=== PATIENT | female | born 1985 ===

== ENCOUNTER 2017-09-08 09:58 | Emergency (ER) | payer MEDICAID ==
[2017-09-08 10:19] VITALS: BP 115/79; PULSE 88; RESP 18; TEMP 98.2; O2SAT 100
--- NOTE | 2017-09-08 10:32 | C.PDOC ---
History Of Present Illness 31 y/o female presents to ED for evaluation of burning with urination, frequency for past 3 days. Otherwise, Patient denies fever, chills, abd. pain, N /V, vaginal bleeding, vaginal discharge, hematuria or any other complaints at this time. Ambulate to Ed for evaluation, not in any apparent distress. Time Seen by Provider: 09/08/17 10:14 Chief Complaint (Nursing): Female Genitourinary History Per: Patient History/Exam Limitations: no limitations Onset/Duration Of Symptoms: Days Current Symptoms Are (Timing): Still Present Quality Of Discomfort: "Pain" Associated Symptoms: Urinary Symptoms Past Medical History Reviewed: Historical Data, Nursing Documentation, Vital Signs Vital Signs: Last Vital Signs Temp 98.2 F 09/08/17 10:05 Pulse 88 09/08/17 10:05 Resp 18 09/08/17 10:05 BP 115/79 09/08/17 10:05 Pulse Ox 100 09/08/17 10:34 - Medical History PMH: No Chronic Diseases Surgical History: No Surg Hx Family History: States: No Known Family Hx - Social History Hx Alcohol Use: No Hx Substance Use: No Review Of Systems Constitutional: Negative for: Fever, Chills Gastrointestinal: Negative for: Nausea, Vomiting Genitourinary: Positive for: Dysuria. Negative for: Hematuria, Vaginal Discharge, Vaginal Bleeding Musculoskeletal: Negative for: Back Pain Skin: Negative for: Rash Physical Exam - Physical Exam Appears: Non-toxic, No Acute Distress Skin: Warm, Dry, No Rash Head: Atraumatic, Normacephalic Eye(s): bilateral: Normal Inspection Oral Mucosa: Moist Neck: Normal ROM, Supple Cardiovascular: Rhythm Regular Respiratory: Normal Breath Sounds, No Rales, No Rhonchi, No Wheezing Gastrointestinal/Abdominal: Soft, Tenderness (Mild suprapubic), No Guarding, No Rebound Back: No CVA Tenderness Neurological/Psych: Oriented x3, Normal Speech ED Course And Treatment - Laboratory Results Urine POC: Negative O2 Sat by Pulse Oximetry: 100 (RA) Pulse Ox Interpretation: Normal Progress Note: On re-evaluation, pt is afebrile, hemodynamicaly stable. Non- toxic. Tolerate Po well in Ed. ENT: no acute findings. Abd: benign, (-) guarding, (-) rebound, (-) RLQ tenderness. back: (-) CVA tenderness. UA results review and c/w UTI. Preg (-). Pt advised on course of ds. ref. to f/ u with PMD in 2-3 days for re-evaluation. return if any new changes. Disposition Counseled Patient/Family Regarding: Studies Performed, Diagnosis, Need For Followup, Rx Given - Disposition [facility]errals: [facility] [Outside] Disposition: HOME/ ROUTINE Disposition Time: 11:10 Condition: STABLE Additional Instructions: Encourage fluids Take medication as prescribed Follow up with PMD in 2-3 days for re-evaluation. return if any new changes. Prescriptions: Nitrofurantoin Macrocrystals [Macrobid] 1 cap PO BID #14 cap Phenazopyridine [Phenazopyridine HCl] 200 mg PO Q12 #6 tab Instructions: Urinary Tract Infections in Adults Forms: [employer] Connect (Mongolian) Print Language: MOHAWK - Clinical Impression Clinical Impression: UTI (urinary tract infection) - PA / SEAM FINISHER / Resident Statement MD/DO has reviewed & agrees with the documentation as recorded. - Scribe Statement The provider has reviewed the documentation as recorded by the Niaibsheila Gordon All medical record entries made by the Geena were at my direction and personally dictated by me. I have reviewed the chart and agree that the record accurately reflects my personal performance of the history, physical exam, medical decision making, and the department course for this patient. I have also personally directed, reviewed, and agree with the discharge instructions and disposition.
[2017-09-08 10:56] LABS: SQUAMOUS EPITHIAL 3 /hpf (0-5); URINE BACTERIA RARE (<OCC); URINE BILIRUBIN NEGATIVE (NEGATIVE); URINE BLOOD 1+ (NEGATIVE); URINE CLARITY Hazy (Clear); URINE COLOR Yellow (YELLOW); URINE GLUCOSE (UA) NORMAL (Normal); URINE LEUKOCYTE ESTERASE 3+ Leu/uL (Negative); URINE PROTEIN NEGATIVE (NEGATIVE); URINE UROBILINOGEN NORMAL mg/dL (0.2-1.0)
== END 2017-09-08 11:32 | disposition home or self-care (01) ==
LOC: C.ER 09:58
DX: N39.0 Urinary tract infection, site not specified (principal)

== ENCOUNTER 2018-01-19 10:13 | Emergency (ER) | payer MEDICAID ==
[2018-01-19 10:26] VITALS: O2SAT 100
--- NOTE | 2018-01-19 10:50 | C.PDOC ---
History Of Present Illness 32 year old female with no prior medical history presents to the ED for evaluation of right 3rd finger pain and swelling s/p mechanical injury sustained at work prior to arrival. Patient reports her finger was pinched by a machine at work. Notes she is right hand dominant. Denies fever, numbness, tingling, other injuries and any other associated symptoms. Time Seen by Provider: 01/19/18 10:26 Chief Complaint (Nursing): Finger,Hand,&Wrist History Per: Patient History/Exam Limitations: no limitations Onset/Duration Of Symptoms: Other (prior to arrival. ) Current Symptoms Are (Timing): Still Present Past Medical History Reviewed: Historical Data, Nursing Documentation, Vital Signs Vital Signs: Last Vital Signs Temp 97.7 F 01/19/18 10:21 Pulse 99 H 01/19/18 10:21 Resp 20 01/19/18 10:21 BP 142/88 01/19/18 10:21 Pulse Ox 100 01/19/18 10:21 Family History: States: Unknown Family Hx - Social History Hx Alcohol Use: No Hx Substance Use: No - Immunization History Hx Tetanus Toxoid Vaccination: No Hx Influenza Vaccination: No Hx Pneumococcal Vaccination: No Review Of Systems Constitutional: Negative for: Fever Musculoskeletal: Positive for: Other (right 3rd finger pain and swelling. ) Neurological: Negative for: Weakness, Numbness, Incoordination Physical Exam - Physical Exam Appears: Well, Non-toxic, No Acute Distress Skin: Normal Color, Warm, Dry, Other (right 3rd digit: skin is intact. oozing at the nail bed.) Head: Atraumatic, Normacephalic Eye(s): bilateral: Normal Inspection, PERRL, EOMI Extremity: Normal ROM (of the right hand and digits. ), Tenderness (along the right 3rd digit. ), Capillary Refill (less than 2 seconds. ), No Deformity, Swelling (along the shaft of the right 3rd digit. ) Neurological/Psych: Oriented x3, Normal Speech, Normal Motor, Normal Sensation, Normal Reflexes ED Course And Treatment O2 Sat by Pulse Oximetry: 100 (RA) Pulse Ox Interpretation: Normal - Other Rad RT Hand x-ray X-Ray: Viewed By Me, Read By Radiologist Interpretation: FINDINGS: RIGHT MIDDLE FINGER: There is transverse nondisplaced fracture at the base of the 3rd distal phalanx. No other fracture is identified elsewhere. Remainder of the right hand (as seen on the AP view) grossly unremarkable. IMPRESSION: Transverse nondisplaced fracture at the base of the 3rd distal phalanx. Medical Decision Making Medical Decision Making: Plan: -RT Hand x-ray HCG Urine Progress/Update: Cricket applied a finger splint 11:34am Re-assessment: X-ray viewed by me, showed fracture. Results discussed with the patient. Stable for discharge home. Prescribed Motrin for the pain. Patient notes she visits the clinic. Advised to follow up in the clinic. Disposition Counseled Patient/Family Regarding: Studies Performed, Diagnosis, Need For Followup - Disposition Disposition: HOME/ ROUTINE Disposition Time: 11:34 Condition: STABLE Additional Instructions: REUBEN DIAZ, thank you for letting us take care of you today. Your provider was Denise Beebe MD and you were treated for FINGER PAIN. The emergency medical care you received today was directed at your acute symptoms. If you were prescribed any medication, please fill it and take as directed. It may take several days for your symptoms to resolve. Return to the Emergency Department if your symptoms worsen, do not improve, or if you have any other problems. Please contact your doctor or call one of the physicians/clinics you have been referred to that are listed on the Patient Visit Information form that is included in your discharge packet. Bring any paperwork you were given at discharge with you along with any medications you are taking to your follow up visit. Our treatment cannot replace ongoing medical care by a primary care provider outside of the emergency department. Thank you for allowing the [facility] team to be part of your care today. Prescriptions: Ibuprofen [Motrin Tab] 800 mg PO TID PRN #30 tab PRN Reason: Pain, Moderate (4-7) Instructions: Finger Fracture (DC) Forms: Gen Discharge Inst [employer], [employer] Connect (Tamazight), Work Excuse Print Language: SAMI - POA Present On Arrival: None - Clinical Impression Clinical Impression: Finger fracture, right - Scribe Statement The provider has reviewed the documentation as recorded by the Scribe (Irma Diaz) Provider Attestation: All medical record entries made by the Scribe were at my direction and personally dictated by me. I have reviewed the chart and agree that the record accurately reflects my personal performance of the history, physical exam, medical decision making, and the department course for this patient. I have also personally directed, reviewed, and agree with the discharge instructions and disposition.
--- NOTE | 2018-01-19 11:25 | RAD ---
Date of service: 01/19/2018 PROCEDURE: Right middle finger radiographs. HISTORY: iinjury COMPARISON: None. TECHNIQUE: AP radiograph of the right hand, as well as spot oblique and lateral images of right middle finger were obtained. FINDINGS: RIGHT MIDDLE FINGER: There is transverse nondisplaced fracture at the base of the 3rd distal phalanx. No other fracture is identified elsewhere. Remainder of the right hand (as seen on the AP view) grossly unremarkable. JOINTS: Normal. SOFT TISSUES: Normal. OTHER FINDINGS: None. IMPRESSION: Transverse nondisplaced fracture at the base of the 3rd distal phalanx.
[2018-01-19 11:46] VITALS: BP 119/77; PULSE 74; RESP 18; TEMP 98.7
== END 2018-01-19 11:49 | disposition home or self-care (01) ==
LOC: C.ER 10:13
DX: S62.662A Nondisplaced fracture of distal phalanx of right middle finger, initial encounter for closed fracture (principal); W31.9XXA Contact with unspecified machinery, initial encounter; Y99.0 Civilian activity done for income or pay